=== PATIENT | female | born 1940 | race African-American/Black ===

== ENCOUNTER 2019-02-01 19:51 | Inpatient (IN) | payer MEDICARE, MEDICAID ==
[~2019-02-01] VITALS: Ht 165.1 cm; Wt 91.7 kg
[2019-02-01 20:08] VITALS: BP 162/98
[2019-02-01] MEDS ORDERED: Nystatin Powder 100,000 units/gm 15gm TOPIC ONE (20:30)
[2019-02-01] MEDS ORDERED: 5-HTP100 MG ORAL (20:34)
[2019-02-01] MEDS ORDERED: CALAMINE LOTIO177 ML TP (20:34)
[2019-02-01] MEDS ORDERED: CRANBERRY TABL1 EACH PO (20:34)
[2019-02-01] MEDS ORDERED: ARICEPT5 MG ORAL (20:34)
[2019-02-01] MEDS ORDERED: VITAMIN C500 M1 ORAL (20:34)
[2019-02-01] MEDS ORDERED: ARTIFICIAL TEAR15 ML BOTH EYES (20:34)
[2019-02-01] MEDS ORDERED: MAGNESIUM OXID400 M2 PO (20:34)
[2019-02-01] MEDS ORDERED: ACETAMINOPHEN325 M1 ORAL (20:34)
[2019-02-01] MEDS ORDERED: NORVASC10 MG ORAL (20:34)
[2019-02-01] MEDS ORDERED: ALBUTEROL SULF8.5 GM INH (20:34)
[2019-02-01] MEDS ORDERED: GABAPENTIN300 MG ORAL (20:34)
[2019-02-01] MEDS ORDERED: MULTIVITAMINS1 EAC8 ORAL (20:34)
[2019-02-01] MEDS ORDERED: METFORMIN HCL1000 M1 ORAL (20:34)
[2019-02-01] MEDS ORDERED: LEVEMIR100 UNIT/1 SUBQ (20:34)
[2019-02-01] MEDS ORDERED: BENADRYL ALLERG25 M1 PO (20:34)
--- NOTE | 2019-02-01 20:59 | Emergency Room Report ---
History of Present Illness General Chief Complaint: Pain Source: Patient Present Illness HPI Patient presents with complaints of discomfort with urination Patient also in acute distress complaining of burning and discomfort to the pelvic area Denies any chest pain or shortness of breath denies any vomiting or diarrhea The triage note reports back pain Patient however reports the discomfort is in the groin area Excruciating Denies any fevers or chills Allergies: Coded Allergies: ACETAMINOPHEN (Verified Allergy, Unknown, 02/01/19) AMOXICILLIN (Verified Allergy, Unknown, 04/15/10) HYDROCODONE (Verified Allergy, Unknown, 02/01/19) PENICILLINS (Verified Allergy, Unknown, 02/01/19) Patient History Past Medical History: see triage record Pertinent Family History: none Last Menstrual Period: NESS Now: No Reviewed Nursing Documentation: PMH: Agreed; PSxH: Agreed Nursing Documentation-PMH Past Medical History: No History, Except For Hx Hypertension: Yes - TIA Hx Diabetes: Yes Review of Systems All Other Systems: negative except mentioned in HPI Physical Exam Vital Signs Date Time Temp Pulse Resp B/P (MAP) Pulse Ox O2 Delivery O2 Flow Rate FiO2 02/01/19 19:54 98.2 110 14 162/98 95 Room Air Sp02 EP Interpretation: reviewed, normal General Appearance: mild distress - appears uncomfortable Head: normocephalic, atraumatic Eyes: bilateral eye PERRL, bilateral eye EOMI ENT: hearing grossly normal, normal pharynx Neck: supple Respiratory: lungs clear, no retraction, no accessory muscle use Cardiovascular #1: regular rate, rhythm Gastrointestinal: non tender, soft Genitourinary: other - Excoriating erythema in the genital area, there is also some ointment in place that obscures the exam Musculoskeletal: normal inspection Neurologic: alert, oriented x3, responsive Skin: other - As above Lymphatic: no adenopathy Medical Decision Making Diagnostic Impression: Primary Impression: Cellulitis ER Course Given the patient's history exam and presentation patient appears fairly uncomfortable The area appears fairly excoriated There is concern for early cellulitis Patient was recommended for Amato catheter as I feel, the contact with the urine is causing further irritation however patient has initially refused this Labs Test 02/01/19 20:40 02/01/19 21:49 White Blood Count 6.4 K/UL (4.8-10.8) Red Blood Count 5.14 M/UL (4.20-5.40) Hemoglobin 10.9 G/DL (12.0-16.0) Hematocrit 35.9 % (37.0-47.0) Mean Corpuscular Volume 70 FL (80-99) Mean Corpuscular Hemoglobin 21.3 PG (27.0-31.0) Mean Corpuscular Hemoglobin Concent 30.5 G/DL (32.0-36.0) Red Cell Distribution Width 13.5 % (11.6-14.8) Platelet Count 316 K/UL (150-450) Mean Platelet Volume 5.7 FL (6.5-10.1) Neutrophils (%) (Auto) 60.1 % (45.0-75.0) Lymphocytes (%) (Auto) 25.4 % (20.0-45.0) Monocytes (%) (Auto) 8.1 % (1.0-10.0) Eosinophils (%) (Auto) 5.1 % (0.0-3.0) Basophils (%) (Auto) 1.3 % (0.0-2.0) Prothrombin Time 9.7 SEC (9.30-11.50) Prothromb Time International Ratio 0.9 (0.9-1.1) Activated Partial Thromboplast Time 25 SEC (23-33) Sodium Level 135 MMOL/L (136-145) Potassium Level 4.1 MMOL/L (3.5-5.1) Chloride Level 97 MMOL/L (98-107) Carbon Dioxide Level 28 MMOL/L (21-32) Anion Gap 10 mmol/L (5-15) Blood Urea Nitrogen 14 mg/dL (7-18) Creatinine 0.9 MG/DL (0.55-1.30) Estimat Glomerular Filtration Rate mL/min (>60) Glucose Level 326 MG/DL (74-106) Calcium Level 9.9 MG/DL (8.5-10.1) Total Bilirubin 0.1 MG/DL (0.2-1.0) Aspartate Amino Transf (AST/SGOT) 16 U/L (15-37) Alanine Aminotransferase (ALT/SGPT) 19 U/L (12-78) Alkaline Phosphatase 105 U/L (46-116) Total Creatine Kinase 79 U/L (26-308) Creatine Kinase MB 0.6 NG/ML (0.0-3.6) Creatine Kinase MB Relative Index 0.7 Troponin I 0.006 ng/mL (0.000-0.056) Pro-B-Type Natriuretic Peptide 69 pg/mL (0-125) Total Protein 8.1 G/DL (6.4-8.2) Albumin 3.0 G/DL (3.4-5.0) Globulin 5.1 g/dL Albumin/Globulin Ratio 0.6 (1.0-2.7) Lipase 133 U/L (73-393) Urine Color Pale yellow Urine Appearance Clear Urine pH 7 (4.5-8.0) Urine Specific [place] 1.005 (1.005-1.035) Urine Protein 2+ (NEGATIVE) Urine Glucose (UA) 4+ (NEGATIVE) Urine Ketones Negative (NEGATIVE) Urine Blood 4+ (NEGATIVE) Urine Nitrite Positive (NEGATIVE) Urine Bilirubin Negative (NEGATIVE) Urine Urobilinogen Normal MG/DL (0.0-1.0) Urine Leukocyte Esterase 2+ (NEGATIVE) Urine RBC 5-10 /HPF (0 - 2) Urine WBC 5-10 /HPF (0 - 2) Urine Squamous Epithelial Cells Few /LPF (NONE/OCC) Urine Bacteria Moderate /HPF (NONE) Rhythm Strip Diag. Results EP Interpretation: yes Rate: 66 Rhythm: NSR, no PVC's, no ectopy Chest X-Ray Diagnostic Results Chest X-Ray Diagnostic Results : Chest X-Ray Ordered: Yes # of Views/Limited/Complete: 1 View Indication: Chest Pain EP Interpretation: Yes Interpretation: no consolidation, no effusion, no pneumothorax Impression: No acute disease Electronically Signed by: Trena Monahan DO Last Vital Signs Date Time Temp Pulse Resp B/P (MAP) Pulse Ox O2 Delivery O2 Flow Rate FiO2 02/01/19 20:08 98.2 110 14 162/98 95 Room Air Status: improved Disposition: ADMITTED INPATIENT Condition: Serious Trena Monahan DO Feb 01, 2019 20:59
[2019-02-01 21:01] LABS: BASOPHILS % (AUTO) 1.3 % (0.0-2.0); EOSINOPHILS % (AUTO) 5.1 % (0.0-3.0); HEMATOCRIT 35.9 % (37.0-47.0); HEMOGLOBIN 10.9 G/DL (12.0-16.0); LYMPHOCYTES % (AUTO) 25.4 % (20.0-45.0); MEAN CORPUSCULAR VOLUME 70 FL (80-99); MONOCYTES % (AUTO) 8.1 % (1.0-10.0); NEUTROPHILS % (AUTO) 60.1 % (45.0-75.0); PLATELET COUNT 316 K/UL (150-450); RED BLOOD COUNT 5.14 M/UL (4.20-5.40); RED CELL DISTRIBUTION WIDTH 13.5 % (11.6-14.8); WHITE BLOOD COUNT 6.4 K/UL (4.8-10.8)
[2019-02-01 21:07] LABS: INR 0.9 (0.9-1.1)
[2019-02-01 21:14] LABS: ANION GAP 10 mmol/L (5-15); BLOOD UREA NITROGEN 14 mg/dL (7-18); CALCIUM 9.9 MG/DL (8.5-10.1); CARBON DIOXIDE 28 MMOL/L (21-32); CHLORIDE 97 MMOL/L (98-107); CREATININE 0.9 MG/DL (0.55-1.30); POTASSIUM 4.1 MMOL/L (3.5-5.1); SODIUM 135 MMOL/L (136-145)
[2019-02-01] MEDS ORDERED: Clindamycin 600mg 50 ML IVPB ONE (21:15)
[2019-02-01 21:27] LABS: ALANINE AMINOTRANSFERASE 19 U/L (12-78); ALBUMIN/GLOBULIN RATIO 0.6 (1.0-2.7); ALKALINE PHOSPHATASE 105 U/L (46-116); ASPARTATE AMINO TRANSFERASE 16 U/L (15-37); BILIRUBIN,TOTAL 0.1 MG/DL (0.2-1.0); CKMB 0.6 NG/ML (0.0-3.6); CREATINE KINASE 79 U/L (26-308)
[2019-02-01] MEDS ORDERED: Milk of Magnesia 30ml Ud ORAL PRN (21:45)
[2019-02-01] MEDS ORDERED: Albuterol 90mcg Inhaler 8gm INH SCH (21:45)
[2019-02-01 22:24] LABS: APPEARANCE,URINE CLEAR; BILIRUBIN, URINE NEGATIVE (NEGATIVE); COLOR,URINE PALE YELLOW; GLUCOSE, URINE (UA) 4+ (NEGATIVE); KETONES,URINE NEGATIVE (NEGATIVE); LEUKOCYTE ESTERASE ,URINE 2+ (NEGATIVE); NITRITE,URINE POSITIVE (NEGATIVE); PH,URINE 7 (4.5-8.0); PROTEIN,URINE 2+ (NEGATIVE); UROBILINOGEN,URINE NORMAL MG/DL (0.0-1.0)
[2019-02-01] MEDS ORDERED: Vancomycin 1.25gm Premix IVPB SCH (23:00)
[2019-02-01 23:27] VITALS: BP 138/71
[2019-02-02 00:40] VITALS: BP 134/74
[2019-02-02] MEDS ORDERED: Zolpidem 5mg tab ORAL PRN (02:45)
[2019-02-02] MEDS ORDERED: LORazepam 1mg tab ORAL PRN (02:45)
[2019-02-02] MEDS: Morphine Sulfate 2mg/ml Inj(IV/IM USE ONLY) IVP PRN ×4 (03:21→17:37)
[2019-02-02 04:00] VITALS: BP 162/100
[2019-02-02] MEDS: NovoLOG Insulin Flexpen SUBQ SCH ×4 (06:06→20:42)
[2019-02-02 08:00] VITALS: BP 139/74
[2019-02-02] MEDS: metFORMIN 500mg tab ORAL SCH (08:36)
[2019-02-02] MEDS: Donepezil 5mg Tab ORAL SCH (08:36)
[2019-02-02] MEDS: Multivitamin w/Minerals tab ORAL SCH (08:37)
[2019-02-02] MEDS: Ascorbic Acid 500mg tab ORAL SCH (08:37)
[2019-02-02] MEDS: Heparin 5000 units/ml inj SUBQ SCH ×2 (08:41→20:34)
[2019-02-02] MEDS: Artificial Tears 1.4% Op Soln BOTH EYES SCH ×2 (08:52→17:44)
[2019-02-02] MEDS ORDERED: Levofloxacin 500mg tab ORAL SCH (09:00)
[2019-02-02] MEDS: Vancomycin 750mg/NS 275ml IVPB SCH ×4 (10:01→22:31)
[2019-02-02 12:00] VITALS: BP 156/94
--- NOTE | 2019-02-02 12:00 | Diagnostic Imaging Report ---
Indication: Chest pain Technique: XRAY Chest 1v Comparison: 09/14/2010 Findings: Heart size and mediastinal contours are stable compared to the prior exam. Atherosclerotic opacification is again noted. There is minimal linear atelectasis at the left base. No additional focal airspace consolidation identified. No pleural effusion or pneumothorax. There is osteopenia and degenerative change of the spine without radiographic appreciable acute osseous abnormality. Impression: Minimal linear atelectasis or scarring at the left base. No pleural effusion, pneumothorax or evidence to suggest alveolar edema. Scoliosis and degenerative change of the spine.
--- NOTE | 2019-02-02 12:12 | Diagnostic Imaging Report ---
Indication: Chest pain Technique: XRAY Chest 1v Comparison: 09/14/2010 Findings: Heart size and mediastinal contours are stable . Atherosclerotic calcifications again noted. There is minimal linear atelectasis or scarring at the left base, unchanged. No additional focal airspace consolidation identified. No pleural effusion or pneumothorax. There is osteopenia and degenerative change of the spine. Impression: Unchanged minimal linear atelectasis or scarring at the left base. No additional focal airspace consolidation identified. No pleural effusion, pneumothorax or evidence to suggest alveolar edema.
[2019-02-02 16:00] VITALS: BP 133/81
[2019-02-02] MEDS: Sennosides 8.6mg tab ORAL SCH (18:45)
--- NOTE | 2019-02-02 19:45 | History and Physical Report ---
DATE OF ADMISSION: 02/01/2019 CHIEF COMPLAINT/REASON FOR HOSPITALIZATION: The patient admitted with wounds in her skin, cellulitis, incontinence, generalized pain, bedridden state, hyperglycemia. HISTORY OF PRESENT ILLNESS: The patient has insulin dependent diabetes, obesity, and prior CVA. She has been bedridden for over a month and has apparently home health aide. She came to the hospital with burning and painful skin and possible dysuria. There is noted to be cellulitis, fungal dermatitis, and decubiti. She has been incontinent and wears diapers. She is nonambulatory, apparently can sit up with maximum assist. ALLERGIES: Written before for acetaminophen, amoxicillin, hydrocodone, and penicillin. Not clear if they are true allergies. PAST SURGICAL HISTORY: Appendectomy, left breast surgery apparently after trauma. HABITS: She is a nonsmoker and nondrinker. No use of illicit drugs. 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 SYSTEM REVIEW: HEAD, EYES, EARS, NOSE, AND THROAT: She has decreased visual acuity until she had cataracts. Hearing is good. ENDOCRINE: History of diabetes, long-standing. PULMONARY: History of dyspnea with minimal exertion. No asthma or TB. CARDIAC: History of leg edema. History of hypertension. No angina or PR that she is aware of. GASTROINTESTINAL: No GI bleeding or ulcers. There is some constipation. GENITOURINARY: She is incontinent of the urine. MUSCULOSKELETAL: History of generalized weakness and inability to walk and osteoarthritis. NEUROLOGIC: History of prior CVA. She cannot describe any unilateral paresis or speech abnormality. MEDICATIONS: Home medications are listed in the computer. She is unable to give us on confirmation. PHYSICAL EXAMINATION: GENERAL: The patient is alert, obese lady, lying in bed, in no acute distress. Looks chronically ill. VITAL SIGNS: Temperature 97.7, pulse 90, respirations 18, and blood pressure 156/94. HEAD, EYES, EARS, NOSE AND THROAT: Oral mucosa is moist. Sclerae are nonicteric. Ocular motions intact in all directions. She has some mild hearing impairment, possibly and I had to repeat myself during the exam. NECK: No adenopathy. BREASTS: No masses. LUNGS: Clear. HEART: Regular rhythm. No murmur. ABDOMEN: Soft. No organomegaly or masses. Abdomen feels firm consistent with possible fecal impaction. RECTAL: Not done at this time. EXTREMITIES: Show 1+ edema. There is bilateral footdrop, degenerative changes in the knees. NEUROLOGIC: She is alert and responsive. Ocular motions intact in all directions. Smile symmetric. Tongue is midline. She moves all extremities, but has weakness in both legs and bilateral footdrop. She needs maximum assist to turn and move about in bed. SKIN: There is fungal dermatitis under the breast and in the groin areas bilaterally. She has buttocks areas with denuded skin and some ulceration in the folds of her buttocks with possibly stage II or III. LABORATORY DATA: Labs were reviewed on the computer include a white count of 6.4 and hemoglobin 10.9, microcytic. Electrolytes normal. Glucose 326. IMPRESSION: 1. Cellulitis of the buttocks and skin. 2. Decubitus ulcers. 3. Incontinence. 4. Fungal dermatitis. 5. Adult-onset diabetes with hyperglycemia. 6. Microcytic anemia. 7. History of cerebrovascular accident. 8. Nonambulatory status. 9. Osteoarthritis. 10. Debility. PLAN: The patient will need wound care and IV antibiotics, monitoring for diabetes, and reassessment of her anemia. She needs acute hospitalization to stabilize her and then make a plan of care for outpatient care. Guevara Park M.D. DR: VANDANA JOB#: [id number] CC:
[2019-02-02 20:00] VITALS: BP 158/73
[2019-02-02] MEDS ORDERED: Levemir Flexpen SUBQ SCH ×2 (21:00)
--- NOTE | 2019-02-02 21:48 | Physician Query ---
Clarification is required for compliance, coding accuracy, and to reflect severity of illness for this patient Dear Dr. Park Date: 02/02/[address] and [address] X in appropriate box Decubitus ulcer has been documented in medical records. Patient is admitted with Cellulitis of buttock and debility. Patient is bedridden. Can you please specify the stage of the decubitus ulcer? [ ] Stage 1 [ ] Stage 2 [ ] Stage 3 [ ] Stage 4 [ ] Unstageable Present on Admission: [ ] Yes [ ] No [ ] Clinically Undetermined Physician signature Date Please also document in your Progress Notes and/or Discharge Summary and indicate if the condition was present on admission.
[2019-02-03] VITALS (7 sets, daily range): BP systolic 138–193; BP diastolic 68–107
[2019-02-03] MEDS: NovoLOG Insulin Flexpen SUBQ SCH ×4 (06:31→20:21)
[2019-02-03] MEDS: Sennosides 8.6mg tab ORAL SCH ×2 (08:01→17:48)
[2019-02-03] MEDS: Ascorbic Acid 500mg tab ORAL SCH (08:01)
[2019-02-03] MEDS: Donepezil 5mg Tab ORAL SCH (08:02)
[2019-02-03] MEDS: Heparin 5000 units/ml inj SUBQ SCH ×2 (08:05→20:19)
[2019-02-03] MEDS: Morphine Sulfate 2mg/ml Inj(IV/IM USE ONLY) IVP PRN ×4 (08:09→21:34)
[2019-02-03] MEDS: Multivitamin w/Minerals tab ORAL SCH (08:09)
[2019-02-03] MEDS: metFORMIN 500mg tab ORAL SCH (08:09)
[2019-02-03] MEDS: Artificial Tears 1.4% Op Soln BOTH EYES SCH ×2 (08:13→17:48)
[2019-02-03 09:04] LABS: BASOPHILS % (AUTO) 1.2 % (0.0-2.0); HEMATOCRIT 35.6 % (37.0-47.0); HEMOGLOBIN 10.7 G/DL (12.0-16.0); LYMPHOCYTES % (AUTO) 30.6 % (20.0-45.0); MEAN CORPUSCULAR VOLUME 70 FL (80-99); NEUTROPHILS % (AUTO) 56.2 % (45.0-75.0); PLATELET COUNT 275 K/UL (150-450); RED BLOOD COUNT 5.06 M/UL (4.20-5.40); WHITE BLOOD COUNT 4.6 K/UL (4.8-10.8)
[2019-02-03 09:30] LABS: % IRON SATURATION 24 % (15-50); IRON 63 ug/dL (50-175); TOTAL IRON BINDING CAPACITY 259 ug/dL (250-450)
[2019-02-03 09:45] LABS: ANION GAP 8 mmol/L (5-15); BLOOD UREA NITROGEN 11 mg/dL (7-18); CALCIUM 9.3 MG/DL (8.5-10.1); CARBON DIOXIDE 29 MMOL/L (21-32); CHLORIDE 102 MMOL/L (98-107); CREATININE 0.7 MG/DL (0.55-1.30); FERRITIN 76 NG/ML (8-388); POTASSIUM 3.9 MMOL/L (3.5-5.1); SODIUM 139 MMOL/L (136-145)
[2019-02-03] MEDS: Vancomycin 1gm/D5W 275ml IVPB SCH ×2 (11:10)
--- NOTE | 2019-02-03 13:05 | General Progress Note ---
Assessment/Plan Problem List: (1) Gait abnormality ICD Codes: R26.9 - Unspecified abnormalities of gait and mobility SNOMED: 69825077 (2) CVA (cerebral vascular accident) ICD Codes: I63.9 - Cerebral infarction, unspecified SNOMED: 056354351 (3) Hyperglycemia due to type 2 diabetes mellitus ICD Codes: E11.65 - Type 2 diabetes mellitus with hyperglycemia SNOMED: 32264801, 483997351958098 (4) Decubitus skin ulcer ICD Codes: L89.90 - Pressure ulcer of unspecified site, unspecified stage SNOMED: 846307710 (5) Cellulitis ICD Codes: L03.90 - Cellulitis, unspecified SNOMED: 806973927 Assessment: continue antibiotics wound care adjust insulin Subjective Constitutional: Reports: weakness HEENT: Reports: no symptoms Cardiovascular: Reports: no symptoms Respiratory: Reports: no symptoms Gastrointestinal/Abdominal: Reports: constipated Genitourinary: Reports: incontinence Neurologic/Psychiatric: Reports: pre-existing deficit Endocrine: Reports: no symptoms Hematologic/Lymphatic: Reports: no symptoms Allergies: Coded Allergies: ACETAMINOPHEN (Verified Allergy, Unknown, 02/01/19) AMOXICILLIN (Verified Allergy, Unknown, 04/15/10) HYDROCODONE (Verified Allergy, Unknown, 02/01/19) PENICILLINS (Verified Allergy, Unknown, 02/01/19) Objective Last 24 Hour Vital Signs Date Time Temp Pulse Resp B/P (MAP) Pulse Ox O2 Delivery O2 Flow Rate FiO2 02/03/19 11:13 97.7 87 20 150/78 (102) 02/03/19 08:50 158/81 (106) 02/03/19 08:10 Room Air 02/03/19 08:05 98.0 94 20 193/107 (135) 02/03/19 08:01 75 152/76 02/03/19 04:00 97.2 75 18 152/76 (101) 02/03/19 00:00 97.7 87 18 150/73 (98) 02/02/19 21:00 Room Air 02/02/19 20:00 98.6 87 18 158/73 (101) 02/02/19 18:07 98.2 02/02/19 16:00 98.2 86 18 133/81 (98) 98 Intake and Output 02/02/19 02/03/19 19:00 07:00 Intake Total 1366.666 ml Output Total 1500 ml 500 ml Balance -133.334 ml -500 ml Intake Oral 1000 ml IV Total 366.666 ml Output Urine Total 1500 ml 500 ml Laboratory Tests 02/03/19 08:50: White Blood Count 4.6L, Red Blood Count 5.06, Hemoglobin 10.7L, Hematocrit 35.6L , Mean Corpuscular Volume 70L, Mean Corpuscular Hemoglobin 21.2L, Mean Corpuscular Hemoglobin Concent 30.2L, Red Cell Distribution Width 14.0, Platelet Count 275, Mean Platelet Volume 6.1L, Neutrophils (%) (Auto) 56.2, Lymphocytes (%) (Auto) 30.6, Monocytes (%) (Auto) 6.0, Eosinophils (%) (Auto) 6.0H, Basophils (%) (Auto) 1.2, Sodium Level 139, Potassium Level 3.9, Chloride Level 102, Carbon Dioxide Level 29, Anion Gap 8, Blood Urea Nitrogen 11, Creatinine 0.7, Estimat Glomerular Filtration Rate , Glucose Level 137H, Calcium Level 9.3, Iron Level 63, Total Iron Binding Capacity 259, Percent Iron Saturation 24, Unsaturated Iron Binding 196, Ferritin 76, Vancomycin Level Trough 9.8 Height (Feet): 5 Height (Inches): 5.00 Weight (Pounds): 202 General Appearance: obese EENT: normal ENT inspection Neck: normal alignment Cardiovascular: normal rate, regular rhythm Respiratory/Chest: lungs clear Abdomen: non tender, soft Edema: mild edema 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
[2019-02-03] MEDS: Nystatin Powder 100,000 units/gm 15gm TOPIC SCH ×2 (13:34→17:49)
--- NOTE | 2019-02-03 18:30 | Consultation ---
DATE OF CONSULTATION: 02/03/2019 CONSULTING PHYSICIAN: Chandra Love M.D. REFERRING PHYSICIAN: Guevara Park M.D. REASON FOR CONSULTATION: Sacral decubitus ulcer. HISTORY OF PRESENT ILLNESS: The patient was admitted to [facility] for cellulitis, pressure ulcers, incontinence, general pain, bedridden state, and . The patient has a history of insulin-dependent diabetes, obesity, and a prior CVA. She has been bedridden for over a month and has been seen by home health aide. The patient was watched at [place] because of decompensation and her overall state as well as "feeling burning painful skin and possibly dysuria on urination. She is noted to have fungal dermatitis and pressure ulcers. She is incontinent and wears diapers. She is nonambulatory and can sit up with maximum assist. PAST SURGICAL HISTORY: Significant for appendectomy and left breast surgery apparently after trauma. MEDICATIONS: Please see medical chart. Medications reviewed and consolidated. ALLERGIES: Acetaminophen, amoxicillin, hydrocodone, and penicillin. SOCIAL HISTORY: She is a nonsmoker and nondrinker. She is retired, bedbound, and currently resides at home, however, she is planning on going to her family house after being discharged. REVIEW OF SYSTEMS: Negative except as noted above. PHYSICAL EXAMINATION: GENERAL: The patient is alert and awake. She is lying in a regular bed, on low air loss mattress. She does not appear to be in distress. VITAL SIGNS: Afebrile. Vitals are within normal range. HEENT: Pupils equal, round, and reactive to light. NECK: Supple. LUNGS: Clear to auscultation. HEART: Regular rate and rhythm. ABDOMEN: Soft, nontender, nondistended. She is obese. RECTAL: Refused. EXTREMITIES: Bilateral lower extremity edema. Bilateral foot drop. SKIN: There is noticed to be a fungal dermatitis under the breasts and groin area bilaterally. She has some signs of fungal dermatitis along the posterior aspect of the thigh gluteal junction. Furthermore, she has a right ischial stage I ulcer measuring at 2.5 x 1.0 x 0.1 cm as well as the sacral stage I ulcer measuring 3.5 x 0.1 cm. Medially, these wounds appear to be cellulitic. No underlying fluctuance or signs of abscess formation. ASSESSMENT AND PLAN: This is a elderly woman who is bedbound with a recent history of CVA. She requires assistance, currently on regular diet and she does, however, note that she sits for long periods of time on a hard chair during rehabilitation. My recommendation at this time is to continue with normal saline washes to the sacral decubitus and ischial decubitus ulcers followed by placement of Hydrogel and Optifoam dressings daily. In addition, the patient needs to be transferred to a low air loss mattress as well as frequent turning q.2 h. or less. I do not feel that her pressure ulcers require her to stay in the hospital, this can be managed by myself as an outpatient. I have instructed the patient on this and available for any other questions or concerns. Thank you very much for allowing me to participate in the care of this patient. Chandra Love M.D. DR: STONE/CANDICE JOB#: [id number] CC:
[2019-02-03] MEDS ORDERED: Iron Sucrose 100 MG in NS 55 ML IV SCH (21:00)
[2019-02-03] MEDS ORDERED: Levemir Flexpen SUBQ SCH (21:00)
[2019-02-04] VITALS: BP 154/73
[2019-02-04] MEDS: Vancomycin 1gm/D5W 275ml IVPB SCH ×4 (00:52→13:41)
[2019-02-04] MEDS: Morphine Sulfate 2mg/ml Inj(IV/IM USE ONLY) IVP PRN ×2 (00:54→14:18)
[2019-02-04 04:00] VITALS: BP 151/75
[2019-02-04] MEDS: NovoLOG Insulin Flexpen SUBQ SCH ×3 (06:36→17:29)
[2019-02-04] MEDS ORDERED: LEVEMIR FL100 UNIT/1 SUBQ (07:44)
[2019-02-04] MEDS ORDERED: BACTRIM DS TAB1 EAC1 ORAL (07:44)
[2019-02-04] MEDS ORDERED: SENNA8.6 M2 ORAL (07:44)
[2019-02-04] MEDS ORDERED: Miralax 17gm pkt ORAL SCH (07:45)
[2019-02-04 08:00] VITALS: BP 144/78
[2019-02-04] MEDS ORDERED: Losartan 50mg tab ORAL SCH (09:00)
[2019-02-04] MEDS: Artificial Tears 1.4% Op Soln BOTH EYES SCH ×2 (09:08→18:00)
[2019-02-04] MEDS: Donepezil 5mg Tab ORAL SCH (09:09)
[2019-02-04] MEDS: Ascorbic Acid 500mg tab ORAL SCH (09:11)
[2019-02-04] MEDS: Sennosides 8.6mg tab ORAL SCH ×2 (09:11→18:00)
[2019-02-04] MEDS: Multivitamin w/Minerals tab ORAL SCH (09:12)
[2019-02-04] MEDS: metFORMIN 500mg tab ORAL SCH (09:13)
[2019-02-04] MEDS: Heparin 5000 units/ml inj SUBQ SCH (09:15)
[2019-02-04] MEDS: Nystatin Powder 100,000 units/gm 15gm TOPIC SCH ×3 (09:45→18:00)
[2019-02-04 12:00] VITALS: BP 138/78
--- NOTE | 2019-02-04 13:21 | Cardiology Report ---
APPROVED REPORT EKG Measurement Heart [id number] Normal sinus rhythm Pulmonary disease pattern Left anterior fascicular block Minimal voltage criteria for LVH, may be normal variant Abnormal QRS-T angle, consider primary T wave abnormality Abnormal ECG
[2019-02-04] MEDS ORDERED: Tubing IV Secondary IV ONE (13:51)
[2019-02-04] MEDS ORDERED: NS 500ML ONE (13:51)
[2019-02-04 16:00] VITALS: BP 136/78
[2019-02-04] MEDS ORDERED: LOSARTAN POTAS100 MG ORAL (18:58)
--- NOTE | 2019-02-04 21:30 | Discharge Summary ---
DATE OF ADMISSION: 02/01/2019 DATE OF DISCHARGE: 02/04/2019 PERTINENT HISTORY: The patient is 78-year-old lady with history of prior CVA, insulin-dependent diabetes, obesity, incontinence. She presents with painful skin lesions and cellulitis and decubiti in the buttock, fungal dermatitis and incontinence. PERTINENT PHYSICAL FINDINGS: HEAD, EYES, EARS, NOSE AND THROAT: Unremarkable. LUNGS: Clear. HEART: Regular rhythm. ABDOMEN: Obese and soft without organomegaly. EXTREMITIES: Show 1+ edema. There is bilateral footdrop and degenerative changes in the knees. SKIN: Fungal dermatitis under the breast and in the groin. Buttocks areas with denuded skin. Some ulcerations in the folds of the buttocks likely stage III decubitus. COURSE IN THE HOSPITAL: The patient was given empiric antibiotics and wound care. She was seen by Dr. Chandra Love for wound consulting. Amato was placed to help to prevent further ulcerations in the buttocks. The patient was nonambulatory, required max assist to turn and do wound care. I advised the patient that she should go to an ECF for further treatment and social service was involved with discharge planning. On the day of discharge, her lungs were clear. Heart, regular rhythm. Abdomen was soft. She had stable wounds that required frequent dressing changes and discharge plans were made. She was discharged to ECF on a diabetic diet and medications per the discharge medication list. FINAL DIAGNOSES: 1. Cellulitis of the buttocks and groin area. 2. Decubitus ulcer stage III. 3. Fungal dermatitis. 4. Incontinence. 5. Adult-onset diabetes with hyperglycemia. 6. Iron-deficiency anemia. 7. History of CVA. 8. Nonambulatory status. 9. Osteoarthritis. 10. Bilateral footdrop. 11. Debility and inability to care for herself. 12. Obesity. DISCHARGE DISPOSITION: To an ECF on diabetic diet. Medications per the discharge medication list. Followup by Dr. Day. Guevara Park M.D. DR: Eri JOB#: [id number] CC:
== END 2019-02-04 19:50 | disposition home or self-care (01) | DRG 602 ==
LOC: EDBD 19:51 → EMR 21:24 → 4E 21:26 → EDBEDREQ 21:37 → 4E 02-03 21:15
DX: L03.317 Cellulitis of buttock (principal); L89.303 Pressure ulcer of unspecified buttock, stage 3; R32 Unspecified urinary incontinence; B36.9 Superficial mycosis, unspecified; E11.65 Type 2 diabetes mellitus with hyperglycemia; D50.9 Iron deficiency anemia, unspecified; Z86.73 Personal history of transient ischemic attack (TIA), and cerebral infarction without residual deficits; M19.90 Unspecified osteoarthritis, unspecified site; R53.81 Other malaise; Z88.6 Allergy status to analgesic agent; Z88.1 Allergy status to other antibiotic agents; Z88.0 Allergy status to penicillin; R26.9 Unspecified abnormalities of gait and mobility
CPT/HCPCS: 36415; 71045; 80048; 80053; 80202; 81003; 82550; 82553; 82728; 82962; 83540; 83550; 83690; 83880; 84484; 85025; 85610; 85730; 87040; 87081; 87086; 87181; 93005; 96365; 99285; J1815; S0077; S5561